=== PATIENT | male | born 1995 | race Caucasian/White ===

== ENCOUNTER 2016-11-24 19:05 | Emergency (ER) | payer MEDICAID, BC ==
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
[2016-11-24 20:00] LABS: BASO % 0.3 % (0-6); EOS % 1.9 % (0-6); GRAN % 59.4 % (47-80); HEMATOCRIT 44.7 % (42.0-52.0); HEMOGLOBIN 15.1 gm/dl (14.0-18.0); LYMPH % 31.8 % (16-45); MEAN CELL VOLUME 89.6 fl (81-97); MEAN CORPUSCULAR HEMOGLOBIN 30.3 pg (27-33); MEAN CORPUSCULAR HGB CONC 33.8 g/dl (32-36); MEAN PLATELET VOLUME 10.7 fl (7.4-10.4); MONO % 6.6 % (0-9); PLATELET COUNT 190 K/uL (130-400); RED BLOOD COUNT 4.99 M/uL (4.40-5.70); RED CELL DISTRIBUTION WIDTH 12.2 % (11.5-14.5); WHITE BLOOD COUNT W/O DIFF 6.3 K/uL (4.2-12.2)
[2016-11-24 20:01] LABS: URINE APPEARANCE CLEAR; URINE BILIRUBIN NEGATIVE (NEGATIVE); URINE BLOOD NEGATIVE (NEGATIVE); URINE COLOR YELLOW; URINE GLUCOSE (UA) NEGATIVE (NEGATIVE); URINE KETONE NEGATIVE (NEGATIVE); URINE LEUKOCYTE ESTERASE NEGATIVE (NEGATIVE); URINE NITRITE NEGATIVE (NEGATIVE); URINE PROTEIN NEGATIVE (NEGATIVE); URINE UROBILINOGEN 0.2 E.U./dL (0.20 - 1.00)
[2016-11-24 20:15] LABS: ANION GAP 9.1 (7-16); BLOOD UREA NITROGEN 20 mg/dL (9-20); CARBON DIOXIDE 26.9 mmol/L (22-30); EST GLOMERULAR FILTRATION RATE > 60 ml/min; GLUCOSE,RANDOM 83 mg/dL (70-110)
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
== END 2016-11-24 21:37 | disposition home or self-care (01) ==
LOC: ER 19:05
DX: S30.1XXA Contusion of abdominal wall, initial encounter (principal); V28.0XXA Motorcycle driver injured in noncollision transport accident in nontraffic accident, initial encounter
CPT/HCPCS: 99283 ×2; 85025; 80048; 81003; 74177; Q9967

== ENCOUNTER 2017-01-07 15:22 | Emergency (ER) | payer MEDICAID, BC ==
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
[2017-01-07] MEDS ORDERED: HYDROCODONE/APAP 5/325MG TABLET PO ONE (17:02)
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
== END 2017-01-07 17:47 | disposition home or self-care (01) ==
LOC: ER 15:22
DX: S82.51XA Displaced fracture of medial malleolus of right tibia, initial encounter for closed fracture (principal); X50.0XXA Overexertion from strenuous movement or load, initial encounter; Y92.410 Unspecified street and highway as the place of occurrence of the external cause
CPT/HCPCS: 99283; 99284